=== PATIENT | male | born 1955 | race Caucasian/White ===

== ENCOUNTER 2019-08-04 07:37 | Emergency (ER) | payer BC ==
[2019-08-04 07:55] VITALS: BP 154/86
--- NOTE | 2019-08-04 08:01 | UC ---
Throat Pain/Nasal Andrae HPI - HPI Summary HPI Summary: 64yo male presenting with nasal congestion and sinus pressure x3 weeks. Patient states it started with other cold symptoms but those have since resolved. States drainage from nose is yellow/green and persistent despite nasal irrigation. Notes pressure in his face that causes intermittent headaches. Denies sore throat, cough. Denies fever and chills. - History of Current Complaint Chief Complaint: UCRespiratory Stated Complaint: SINUS CONGESTION HEADACHE Hx Obtained From: Patient Pain Intensity: 0 - Allergies/Home Medications Allergies/Adverse Reactions: Allergies Allergy/AdvReac Type Severity Reaction Status Date / Time No Known Allergies Allergy Verified 08/04/19 07:50 Home Medications: Home Medications Cetirizine* [ZyrTEC 10 MG TAB*] 10 mg PO DAILY 08/04/19 [History Confirmed 08/04] Valsartan/Hydrochlorothiazide [Valsartan/Hydrochlorothia] 1 tab PO DAILY [History Confirmed 08/04/19] amLODIPine TAB* [Norvasc 5 mg TAB*] 10 mg PO DAILY 08/04/19 [History Confirmed 08/04/19] PMH/Surg Hx/FS Hx/Imm Hx Cardiovascular History: Hypertension - Surgical History Surgical History: Yes Surgery Procedure, Year, and Place: LEFT SHOULDER. [facility]. T&A - Family History Known Family History: Positive: Non-Contributory - Social History Alcohol Use: Weekly Substance Use Type: None Smoking Status (MU): Former Smoker When Did the Patient Quit Smoking/Using Tobacco: ~1976 Review of Systems All Other Systems Reviewed And Are Negative: Yes Constitutional: Positive: Negative ENT: Positive: Sinus Congestion, Sinus Pain/Tenderness Respiratory: Positive: Negative Cardiovascular: Positive: Negative Neurological/Mental Status: Positive: Headache - intermittent sinus headache Physical Exam - Summary Physical Exam Summary: Vital Signs Reviewed: Yes A+Ox3, no distress Eyes: Conjunctiva Clear ENT: Hearing grossly normal, TM x 2 clear, +nasal congestion, +PND, moist, uvula midline, no exudate, no erythema Neck: Positive: Supple Respiratory: Positive: No respiratory distress, No accessory muscle use + CTA throughout no w/r Cardiovascular: RRR nl s1, s2 no m/r Musculoskeletal Exam: CHOI x 4 without difficulty Neurological: Positive: Alert Psychological: Positive: age appropriate behavior Skin: Positive: no rash, no ecchymosis Vital Signs: Initial Vital Signs Temp 98 F 08/04/19 07:48 Pulse 74 08/04/19 07:48 Resp 16 08/04/19 07:48 BP 154/86 08/04/19 07:48 Pulse Ox 100 08/04/19 07:48 Throat Pain/Nasal Course/Dx - Course Course Of Treatment: I treated patient with Augmentin for sinusitis and instructed to continue with symptomatic treatment. Informed patient that he should follow up with pcp if symptoms not resolved after 7 days. Patient voiced understanding and agreed with treatment plan. - Differential Dx/Diagnosis Differential Diagnosis/HQI/PQRI: Sinusitis, URI Provider Diagnosis: Acute rhinosinusitis Discharge ED - Sign-Out/Discharge Documenting (check all that apply): Patient Departure All imaging exams completed and their final reports reviewed: No Studies - Discharge Plan Condition: Stable Disposition: HOME Prescriptions: Amoxicillin/Clavulanate TAB* [Augmentin TAB 875*] 875 mg PO BID #14 tab Patient Education Materials: Rhinosinusitis (ED) Referrals: Keith Brooke MD [Primary Care Provider] - If Needed Additional Instructions: Take Augmentin for treatment of your sinusitis. You may continue with the nasal irrigation. Follow up with your primary care provider if symptoms do not resolve within 7 days. - Billing Disposition and Condition Condition: STABLE Disposition: Home
== END 2019-08-04 08:21 | disposition home or self-care (01) ==
LOC: UCCORT 07:37
DX: J01.90 Acute sinusitis, unspecified (principal)
CPT/HCPCS: 99202; G0463